=== PATIENT | female | born 1990 | race Two or more races ===

== ENCOUNTER 2018-12-14 05:07 | Emergency (ER) | payer SELFPAY ==
[~2018-12-14] VITALS: Ht 162.6 cm; Wt 54.4 kg
[2018-12-14 05:19] VITALS: BP 110/74
--- NOTE | 2018-12-14 05:19 | NUR ---
ED Nurse Note: Pt arrived ED from home. C/o back of her Head injuried after fell during her work. Pt is A/O x4. Vital signs stable at this time, waiting for orders.
[2018-12-14] MEDS ORDERED: IBUPROFEN600 MG ORAL (05:34)
--- NOTE | 2018-12-14 05:34 | Emergency Room Report ---
History of Present Illness General Chief Complaint: Laceration Source: Patient Present Illness HPI Is a 28-year-old female who injured her head while at work. She was on a pole and fell down and hit the back of her head. She sustained a laceration. No loss of consciousness. There is a lot of bleeding. No fever chills but no nausea no vomiting. No other injury. Pain is 8 out of 10. Allergies: Coded Allergies: No Known Allergies (Unverified , 12/14/18) Patient History Past Medical History: see triage record, old chart reviewed Past Surgical History: none Pertinent Family History: none Social History: Reports: alcohol use Last Menstrual Period: 12/12/2018 Now: No Immunizations: other Reviewed Nursing Documentation: PMH: Agreed; PSxH: Agreed Nursing Documentation-PMH Past Medical History: No Stated History Review of Systems Eye: Denies: eye pain, blurred vision ENT: Denies: ear pain, nose congestion, throat swelling Respiratory: Denies: cough, shortness of breath Cardiovascular: Denies: chest pain, palpitations Gastrointestinal: Denies: abdominal pain, diarrhea, nausea, vomiting Musculoskeletal: Denies: back pain, joint pain Skin: Denies: rash Neurological: Denies: headache, numbness Endocrine: Denies: increased thirst, increased urine Hematologic/Lymphatic: Denies: easy bruising All Other Systems: negative except mentioned in HPI Physical Exam Vital Signs Date Time Temp Pulse Resp B/P (MAP) Pulse Ox O2 Delivery O2 Flow Rate FiO2 12/14/18 05:12 98.1 71 14 110/74 97 Room Air vitals normal Sp02 EP Interpretation: reviewed, normal General Appearance: well appearing, no apparent distress, alert Head: normocephalic, other - 2 cm laceration over the Occipital scalp. Eyes: bilateral eye PERRL, bilateral eye EOMI ENT: hearing grossly normal, normal pharynx Neck: full range of motion, supple, no meningismus Respiratory: chest non-tender, lungs clear, normal breath sounds Cardiovascular #1: regular rate, rhythm, no murmur Gastrointestinal: normal bowel sounds, non tender, no mass, no organomegaly, no bruit, non-distended Musculoskeletal: back normal, gait/station normal, normal range of motion Psychiatric: mood/affect normal Skin: warm/dry Procedures Laceration/Wound Repair Laceration/Wound Repair : Consent: Verbal Wound Location: head Wound Length (cm): 2 Wound Explored: clean Wound Repaired With: ramiro Patient Tolerated: Well Complications: None Progress I placed 4 ramiro. no complication Medical Decision Making Diagnostic Impression: Primary Impression: Head injury, acute Qualified Codes: S09.90XA - Unspecified injury of head, initial encounter Additional Impression: Occipital scalp laceration Qualified Codes: S01.01XA - Laceration without foreign body of scalp, initial encounter ER Course Patient with head injury with scalp laceration. No evidence of any bleeding. Last Vital Signs Date Time Temp Pulse Resp B/P (MAP) Pulse Ox O2 Delivery O2 Flow Rate FiO2 12/14/18 05:12 98.1 71 14 110/74 97 Room Air Status: improved Disposition: HOME, SELF-CARE Condition: Stable Scripts Ibuprofen* (MOTRIN*) 600 Mg Tablet 600 MG ORAL THREE TIMES A DAY, #30 TAB 0 Refills Prov: Jose Alfredo Randall MD 12/14/18 Patient Instructions: Laceration Care, Adult Additional Instructions: Follow-up with your Dr. in 7 days. Staple out in 7 days. Return if worse. Jose Alfredo Randall MD Dec 14, 2018 05:34
[2018-12-14] MEDS: Tetanus/Diptheria/Pertussis Vaccine 0.5ml Syr IM ONE (05:36)
--- NOTE | 2018-12-14 05:36 | NUR ---
ED Nurse Note: Pain meds and Tetanus given as ordered. CT of head done. Applied 4 ramiro to the laceration by MD. Pt is a/o x4. VSS.
[2018-12-14 06:17] VITALS: BP 110/74
--- NOTE | 2018-12-14 06:17 | NUR ---
ED Nurse Note: Pt has seen by Dr. Randall, all orders carried out.Pt is ready for Discharge. D/C instruction and Prescription given to Pt and verbalized understanding. ID band removed. Pt d/c from ED with steady gait. Accompanied by her Family.
--- NOTE | 2018-12-14 10:35 | Diagnostic Imaging Report ---
Indications: Head trauma Technique: Spiral acquisitions obtained through the brain. Angled axial and coronal 5 x 5 mm slices were reconstructed. Total dose length product 1333.86 mGycm. CTDI vol(s) 70.38 mGy. Dose reduction achieved using automated exposure control Comparison: None. Findings: No acute intracranial hemorrhage or edema, mass effect, nor midline shift. Normal hoffman-white differentiation. Normal-sized ventricles and extra-axial CSF spaces. Skin ramiro are seen repairing left posterior parietal region scalp laceration. No underlying calvarial fracture. Visualized orbits and sinuses are unremarkable. Impression: Evidence of left posterior scalp soft tissue trauma Negative for acute intracranial bleed or mass effect The CT scanner at [facility] is accredited by the [employer] and the scans are performed using protocols designed to limit radiation exposure to as low as reasonably achievable to attain images of sufficient resolution adequate for diagnostic evaluation.
== END 2018-12-14 06:17 | disposition home or self-care (01) ==
LOC: EMR 06:16
DX: S09.8XXA Other specified injuries of head, initial encounter (principal); S01.01XA Laceration without foreign body of scalp, initial encounter; W18.30XA Fall on same level, unspecified, initial encounter; Y92.89 Other specified places as the place of occurrence of the external cause; Z23 Encounter for immunization
CPT/HCPCS: 70450; 90471; 90715; 99284

== ENCOUNTER 2018-12-24 13:05 | Emergency (ER) | payer MEDICAID ==
[~2018-12-24] VITALS: Ht 162.6 cm; Wt 56.7 kg
[~2018-12-24 13:05] MED LIST: IBUPROFEN600 MG ORAL
[2018-12-24] MEDS ORDERED: NKM (13:10)
[2018-12-24 13:17] VITALS: BP 101/61
--- NOTE | 2018-12-24 13:17 | NUR ---
ED Nurse Note: Pt came in for staple removal on the govea of her head. Denies pain at the site. No signs of infection.
[2018-12-24] MEDS ORDERED: BACITRACIN-P28.35 GM TP (13:26)
--- NOTE | 2018-12-24 13:27 | Emergency Room Report ---
History of Present Illness General Chief Complaint: Wound Recheck/Suture Removal Source: Patient Present Illness HPI 28-year-old female patient presents the ER requesting staple removal and wound check. Reports that she was seen here previously 10 days ago for laceration on her posterior head after sustaining a fall. Reports that she had a CT head at that time which was negative. Reports no symptoms since that time. Denies somnolence or dizziness. Reports did not take ibuprofen for the pain. Denies fever, chest pain, shortness of breath. Denies vomiting or vision changes. Denies other aggravating or relieving factors. Allergies: Coded Allergies: No Known Allergies (Unverified , 12/14/18) Patient History Past Medical History: see triage record Last Menstrual Period: 12/03/2018 Now: No : 1 Para: 0 Reviewed Nursing Documentation: PMH: Agreed; PSxH: Agreed Nursing Documentation-PMH Past Medical History: No Stated History Review of Systems All Other Systems: negative except mentioned in HPI Physical Exam Vital Signs Date Time Temp Pulse Resp B/P (MAP) Pulse Ox O2 Delivery O2 Flow Rate FiO2 12/24/18 13:07 98.2 70 18 101/61 98 Room Air Sp02 EP Interpretation: reviewed, normal General Appearance: well appearing, no apparent distress, alert, GCS 15, non- toxic Head: normocephalic, atraumatic Eyes: bilateral eye normal inspection, bilateral eye PERRL ENT: hearing grossly normal, normal pharynx, no angioedema, normal voice, uvula midline, moist mucus membranes Neck: full range of motion Respiratory: lungs clear, normal breath sounds, no rhonchi, no respiratory distress, no accessory muscle use, no wheezing, speaking full sentences Cardiovascular #1: regular rate, rhythm, no edema Neurologic: alert, oriented x3, responsive, motor strength/tone normal, sensory intact Psychiatric: mood/affect normal Skin: other - Posterior scalp laceration, healing well, wound edges well approximated, mild scabbing noted, no surrounding erythema or edema, no drainage Medical Decision Making PA Attestation Dr. Amaya is my supervising Physician whom patient management has been discussed with. Diagnostic Impression: Primary Impression: Removal of ramiro ER Course Pt. presents to the ED requesting wound check of scalp and staple removal. Ddx considered but are not limited to cellulitis, abscess, wound check, folliculitis, staple removal. Vital signs: are WNL, pt. is afebrile Ordered Bacitrain. ER COURSE: Wound has no signs of infection., no erythema, edema, TTP, sensation is intact to light touch. Wound edges well approximated. 4 ramiro removed. Patient tolerated procedure well. Bacitracin applied to wound. Apply Neosporin to wound to reduce appearance of scar. ER precautions given. DISCHARGE: Rx provided for Bacitracn At this time pt. is stable for d/c to home. Patient resting comfortatbly, in no acute distress, nontoxic appearing. Will provide printed patient care instructions and any necessary prescriptions. Care plan and follow up instructions have been discussed with the patient prior to discharge. Patient instructed to follow-up with primary care provider for further treatment and referral. Patient questions asked and answered. ER precautions given. Patient instructed to return to ER immediately for any new or worsening of symptoms including but not limited to fever, worsening of pain symptoms. - Please note that this Emergency Department Report was dictated using [employer] technology software, occasionally this can lead to erroneous entry secondary to interpretation by the dictation equipment. Last Vital Signs Date Time Temp Pulse Resp B/P (MAP) Pulse Ox O2 Delivery O2 Flow Rate FiO2 12/24/18 13:07 98.2 70 18 101/61 98 Room Air Disposition: HOME, SELF-CARE Condition: Stable Scripts Bacitracin/Polymyxin B Sulfate (BACITRACIN-POLYMYXIN OINTMENT) 28.35 Gm Oint...g. 1 APPLIC TP BID for 10 Days, #28 GM Prov: Ko Way 12/24/18 Patient Instructions: Wound Check Additional Instructions: Followup with primary care provider in 3 -5 days. Keep clean and dry. Apply bacitracin to help prevent infection. Take medications as directed. Patient questions asked and answered. ER precautions given, patient instructed to return to ER immediately for any new or worsening of symptoms. Ko Way Dec 24, 2018 13:27
[2018-12-24] MEDS ORDERED: Bacitracin Oint 15gm Tube TOPIC ONE (13:30)
[2018-12-24] MEDS ORDERED: Bacitracin Oint UD TOPIC ONE (13:30)
[2018-12-24 13:33] VITALS: BP 110/72
--- NOTE | 2018-12-24 13:33 | NUR ---
ED Nurse Note: Pt cleared by health care Provider for discharge. DC instructions/prescription was given and explained to pt and verbalized understanding of teachings. All medical deviecs such as ID band removed. Pt is AAO x4, ambulatory and left with all personal belongings.
== END 2018-12-24 13:35 | disposition home or self-care (01) ==
LOC: EMR 13:30
DX: S01.01XD Laceration without foreign body of scalp, subsequent encounter (principal); W19.XXXD Unspecified fall, subsequent encounter; Z48.02 Encounter for removal of sutures
CPT/HCPCS: 99282